=== PATIENT | female | born 1970 | race Caucasian/White ===

== ENCOUNTER 2020-01-24 16:06 | Emergency (ER) | payer OTHER ==
--- NOTE | 2020-01-24 16:47 | XRAY ---
Exam: Two-view left wrist from 01/24/2020. Comparison: None. Indication: Patient fell today, unable to move left wrist for oblique image. Findings: AP and lateral images were obtained. The lateral film is slightly rotated. I see no definite acute fracture or dislocation. There is a positive ulnar variance of about 3.5 mm. The radiocarpal joint space is adequately preserved. The carpal scaphoid bone and carpal joint spaces appear grossly unremarkable. Impression: 1. Two-view left wrist series reveals no definite acute fracture or dislocation.
--- NOTE | 2020-01-24 16:50 | ERPHSYRPT ---
- History of Present Illness Source: patient Exam Limitations: no limitations Patient Subjective Stated Complaint: pt here for a fall, she states she was loading a moving truck and lost her balance falling 4 feet, catching self with left arm, no loc, co pain to left elbow and left wrist Triage Nursing Assessment: pt walked in alert, with face mask on,alert, resp easy, she sling on to left arm, has strong radial pulse, nail beds pink, removed ring and given to daughter, moves fingers well Physician History: 49 yo wf fell off the back of a stationary moving truck before arrival. Pt complains of L wrist/L olecranon pain. Pain is 5/10 and up to 9/10 with movement. Pt is R handed. She denies DAMON/LOC/C-T-Lspine ttp/B hip and knee pain. She is not . Refused pain meds upon arrival. Occurred: just prior to arrival Reason for Fall: slipped Injuries/Pain Location: upper extremity Loss of Consciousness: no loss of consciousness Severity of Pain-Max: severe Severity of Pain-Current: moderate Modifying Factors: Improves With: movement Associated Symptoms (Fall): No abdominal pain, No back pain, No confusion, No chest pain, No dizziness, No extremity injury, No headache, No lightheadedness, No muscle spasms, No nausea, No neck pain, No ringing in ears, No seizures, No shortness of breath, No slurred speech, No trouble walking, No vomiting, No vision changes Allergies/Adverse Reactions: No Known Drug Allergies Allergy (Unverified 01/24/20 16:25) Home Medications: Galcanezumab-Gnlm [Emgality Syringe] 1 ea DAILY 01/24/20 [History] Hx Tetanus, Diphtheria Vaccination/Date Given: Yes (3 years) Hx Influenza Vaccination/Date Given: Yes Hx Pneumococcal Vaccination/Date Given: No Immunizations Up to Date: Yes Travel Risk - International Travel Have you traveled outside of the country in past 3 weeks: No - Coronavirus Screening Are you exhibiting any of the following symptoms?: No Close contact with a COVID-19 positive Pt in past 14-21 Days: No - Review of Systems Constitutional: No Symptoms Eyes: No Symptoms Ears, Nose, & Throat: No Symptoms Respiratory: No Symptoms Cardiac: No Symptoms Abdominal/Gastrointestinal: No Symptoms Genitourinary Symptoms: No Symptoms Skin: No Symptoms Neurological: No Symptoms Psychological: No Symptoms Endocrine: No Symptoms Hematologic/Lymphatic: No Symptoms Immunological/Allergic: No Symptoms - Past Medical History Pertinent Past Medical History: Yes Neurological History: Migraines - Past Surgical History Past Surgical History: Yes Gastrointestinal: Hernia Repair - Social History Smoking Status: Never smoker Exposure to second hand smoke: No Drug Use: none Patient Lives Alone: No Significant Family History: no pertinent family hx - Female History Hx Last Menstrual Period: december Hx Now: No - Nursing Vital Signs Nursing Vital Signs: Initial Vital Signs Temperature 98.6 F 01/24/20 16:13 Pulse Rate 64 01/24/20 16:13 Respiratory Rate 18 01/24/20 16:13 Blood Pressure 146/105 01/24/20 16:13 O2 Sat by Pulse Oximetry 100 01/24/20 16:13 Pain Scale Pain Intensity 4 - [place] Coma Score Best Eye Response ([place]): (4) open spontaneously Best Verbal Response ([place]): (5) oriented Best Motor Response ([place]): (6) obeys commands [place] Total: 15 - Physical Exam General Appearance: no apparent distress Head Injury: no evidence of injury, No active bleeding Eye Exam: PERRL/EOMI, eyes nml inspection ENT Exam: airway nml, No evidence of ENT injury, No dental injury, No clear fluid (ears), No clear fluid (nose) Neck Exam: supple, trachea midline, full range of motion (C-spine nttp) Respiratory/Chest Exam: normal breath sounds, No chest tenderness, No respiratory distress Cardiovascular Exam: normal heart sounds, regular rate/rhythm, normal peripheral pulses, No murmur Gastrointestinal Exam: soft, No tenderness Rectal Exam: deferred Back Exam: other (No C/T/L spine ttp) Extremity Exam: other (L olecranon markedly ttp/Edema/L distal radius ttp w edema/Good radial pulse, distal sensation, and capillary return) Neurologic Exam: alert, oriented x 3, cooperative, 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, normal mood/affect, nml cerebellar function, nml station & gait, sensation nml, No motor deficits Skin Exam: normal color, warm, dry, No rash SpO2 Interpretation: normal SpO2: 100 O2 Delivery: Room Air Procedures - Splinting Location of Splint: Left, Elbow Type of Splint: Orthoglass Long Arm Splint Splint Applied By: ED Physician Pre-Proc Neuro Vasc Exam: normal Post-Proc Neuro Vasc Exam: neurovascular intact - Course Nursing assessment & vital signs reviewed: Yes - Radiology Exams Elbow X-ray Interpretation: Discussed w/ radiologist (L radial head fx per rad) Wrist X-ray Interpretation: Discussed w/ radiologist (L wrist neg per rad) Ordered Tests: Active Orders 24 hr Category Date Time Status ELBOW (MINIMUM 3 VIEWS) Stat Exams 01/24/20 16:34 Completed WRIST (2 VIEW) Stat Exams 01/24/20 16:40 Completed Medication Summary Discontinued Medications Generic Name Dose Route Start Last Admin Trade Name Freq PRN Reason Stop Dose Admin Hydrocodone Bitart/Acetaminophen 1 tab 01/24/20 16:54 01/24/20 17:17 [place] 10/325 Mg Tablet PO 01/24/20 16:55 1 tab STAT ONE Administration Hydrocodone Bitart/Acetaminophen Confirm 01/24/20 17:16 [place] 10/325 Mg Tablet Administered 01/24/20 17:17 Dose 1 tab .ROUTE .STK-MED ONE Hydrocodone Bitart/Acetaminophen 2 tab 01/24/20 17:52 01/24/20 17:56 [place] 10/325 Mg Tablet PO 01/24/20 17:53 2 tab SENT HOME W/ PATIENT ONE Administration Hydrocodone Bitart/Acetaminophen Confirm 01/24/20 17:53 [place] 10/325 Mg Tablet Administered 01/24/20 17:54 Dose 2 tab .ROUTE .STK-MED ONE - Progress Progress: improved Progress Note: 01/24/20 17:02 Norco10 po x1 01/24/20 19:05 Pt to f/u w [facility] in AM [id number] take home Counseled pt/family regarding: need for follow-up, rad results - Departure Departure Disposition: Home Clinical Impression: Radial head fracture, closed, Sprain of wrist, left Condition: Stable Critical Care Time: No Referrals: BRANDI HERBERT [Primary Care Provider] - Instructions: Wrist Sprain (DC), Radius Fracture (DC) Additional Instructions: Pain meds as needed Ice for 12-24 hours Call for ortho appointment in AM Prescriptions: Hydrocodone Bit/Acetaminophen [[place] 10-325 Tablet] 1 each PO Q4H PRN PRN #12 tablet PRN Reason: Pain
--- NOTE | 2020-01-24 16:51 | XRAY ---
Exam: 3 view left elbow series from 01/24/2020. Comparison: None. Indication: 49-year-old female fell today, complains of pain. Findings: AP, lateral, and an angled lateral radiograph of the left elbow were obtained. There is a shallow oblique fracture of the left radial head involving the articular surface with slight diastasis and impaction. The anterior fat pad appears mildly elevated which may be due to a small left elbow joint effusion or hemarthrosis. No posterior fat pad is seen. Both the distal left humerus and proximal left ulna appear intact. Impression: 1. Acute left radial head fracture with probable small left elbow joint effusion/hemarthrosis.
[2020-01-24] MEDS ORDERED: Norco 10/325 MG Tablet PO ONE ×2 (16:54→17:52)
[2020-01-24] MEDS ORDERED: Norco 10/325 MG Tablet ONE ×2 (17:16→17:53)
[2020-01-24 18:06] VITALS: BP 134/83; PULSE 58
[2020-01-24 19:06] VITALS: O2SAT 100
== END 2020-01-24 18:00 | disposition home or self-care (01) ==
LOC: ED 16:06
DX: S52.122A Displaced fracture of head of left radius, initial encounter for closed fracture (principal); S63.502A Unspecified sprain of left wrist, initial encounter; W17.89XA Other fall from one level to another, initial encounter; Y93.89 Activity, other specified; Y92.89 Other specified places as the place of occurrence of the external cause; M25.562 Pain in left knee; M25.522 Pain in left elbow
CPT/HCPCS: 29105; 73080; 73100; 99284; A9270-GY